=== PATIENT | female | born 2000 | race American Indian/Alaskan Native ===

== ENCOUNTER 2023-10-17 22:57 | Emergency (ER) | payer BC ==
[~2023-10-17] VITALS: Ht 162.6 cm; Wt 76.2 kg
[2023-10-17] MEDS ORDERED: QUET50TA PO (23:12)
[2023-10-17] MEDS ORDERED: BUPR1FIL SL (23:12)
[2023-10-18 00:59] VITALS: BP 159/90; TEMP 98.2; O2SAT 99
== END 2023-10-18 00:45 | disposition home or self-care (01) ==
LOC: ER 23:07
DX: K11.7 Disturbances of salivary secretion (principal); T50.7X5A Adverse effect of analeptics and opioid receptor antagonists, initial encounter; Z98.890 Other specified postprocedural states; T47.2X5A Adverse effect of stimulant laxatives, initial encounter; T43.595A Adverse effect of other antipsychotics and neuroleptics, initial encounter; Y92.89 Other specified places as the place of occurrence of the external cause
CPT/HCPCS: A4606; A4663